=== PATIENT | male | born 1995 | race Caucasian/White ===

== ENCOUNTER 2017-05-27 20:24 | Emergency (ER) | payer MEDICAID, OTHER ==
[2017-05-27] MEDS: HYDROCODONE/APAP (5/325) TAB PO (21:23)
[2017-05-27] MEDS: DIPHTH/TET/ACEL PERTUSS (ADULT) 0.5 ML VIAL IM* (21:23)
[2017-05-27] MEDS: SILVER SULFADIAZINE 1% 25 GM CR TOP (21:27)
== END 2017-05-27 21:51 | disposition home or self-care (01) ==
LOC: FTE 20:24
DX: T22.111A Burn of first degree of right forearm, initial encounter (principal); T20.19XA Burn of first degree of multiple sites of head, face, and neck, initial encounter; X10.2XXA Contact with fats and cooking oils, initial encounter; Y92.9 Unspecified place or not applicable
CPT/HCPCS: 90471; 90715; 99284-25